=== PATIENT | female | born 1980 | race Caucasian/White ===

== ENCOUNTER → 2017-01-07 | Outpatient (CLI) | payer OTHER ==
[~2017-01-07] MED LIST: BETAMETHASONE SOD PHOS/ACETATE SUSP 30 MG/5 ML VIAL IM SCH; CLIN1CAP6 PO; IBUP-232 PO
== END ==
LOC: HPND 14:28
PROVIDERS: ATTEND Obstetrics & Gynecology
DX: Z34.83 Encounter for supervision of other normal pregnancy, third trimester (principal)
CPT/HCPCS: 96372; J0702

== ENCOUNTER → 2017-01-08 | Outpatient (CLI) | payer OTHER | LOC: HOBG 14:44 | PROVIDERS: ATTEND Obstetrics & Gynecology | DX: Z34.83 Encounter for supervision of other normal pregnancy, third trimester (principal) | CPT/HCPCS: 96372; J0702 ==

== ENCOUNTER 2017-01-26 15:34 | Inpatient (IN) | payer OTHER ==
[~2017-01-26 15:34] MED LIST changes: -BETAMETHASONE SOD PHOS/ACETATE SUSP 30 MG/5 ML VIAL IM SCH; -IBUP-232 PO
[2017-01-26 17:42] VITALS: BP 141/88; PULSE 102
[2017-01-26 17:45] VITALS: RESP 18
[2017-01-26] MEDS ORDERED: NS 500 ML BOLUS IV PRN (18:00)
[2017-01-26] MEDS ORDERED: NS 1000 ML IV PRN (18:00)
[2017-01-26] MEDS ORDERED: LIDOCAINE HCL 1% 50 ML VIAL I-DERMAL PRN (18:00)
[2017-01-26] MEDS ORDERED: MINERAL OIL 10 ML VIAL TOP PRN (18:00)
[2017-01-26] MEDS ORDERED: LACTATED RINGER'S 1000 ML BOLUS IV PRN (18:00)
[2017-01-26] MEDS ORDERED: LACTATED RINGER'S 1000 ML IV SCH (18:00)
[2017-01-26] MEDS ORDERED: LIDOCAINE HCL 1% 50 ML VIAL INFIL PRN (18:00)
[2017-01-26] MEDS ORDERED: OXYTOCIN 30 UNITS 500ML PREMIX IV ONE (18:00)
[2017-01-26] MEDS ORDERED: CITRIC ACID-SODIUM CITRATE LIQ 30 ML UDC PO SCH (18:00)
[2017-01-26 18:03] LABS: AUTOMATED NEUTROPHIL # 7.6 TH/MM3 (1.8-7.7); BASOPHIL % 0.2 % (0.0-2.0); EOSINOPHIL # 0.1 TH/MM3 (0-0.4); EOSINOPHIL % 1.2 % (0.0-4.0); HEMATOCRIT 38.8 % (35.0-46.0); HEMO FLAGS DIFF FINAL; LYMPH % 16.1 % (9.0-44.0); LYMPHOCYTE # 1.6 TH/MM3 (1.0-4.8); MEAN CELL VOLUME 89.6 FL (80.0-100.0); MEAN CORPUSCULAR HEMOGLOBIN 30.5 PG (27.0-34.0); MONO % 5.9 % (0.0-8.0); NEUT % 76.6 % (16.0-70.0); PLATELET COUNT 304 TH/MM3 (150-450); RED BLOOD COUNT 4.33 MIL/MM3 (4.00-5.30); RED CELL DISTRIBUTION WIDTH 13.3 % (11.6-17.2); WHITE BLOOD COUNT 9.9 TH/MM3 (4.0-11.0)
[2017-01-26 18:08] LABS: BACTERIA, URINE RARE /hpf; BLOOD, URINE NEG (NEG); COMMENT (UR) CULT NOT INDICATED; CULTURE IF INDICATED CULT NOT INDICATED; GLUCOSE,URINE NEG (NEG); KETONE, URINE NEG (NEG); MUCUS URINE FEW /lpf (OCC); NITRITE,URINE NEG (NEG); SQUAMOUS EPITHELIAL CELL URINE 8 /hpf (0-5); URINE COLOR YELLOW (YELLW/STRAW)
[2017-01-26 18:15] LABS: ANION GAP 13 MEQ/L (5-15); AST (GOT) 13 U/L (15-37); BICARBONATE 22.9 MEQ/L (21.0-32.0); BLOOD UREA NITROGEN 10 MG/DL (7-18); CHLORIDE 104 MEQ/L (98-107); GLOMERULAR FILTRATION RATE 100 ML/MIN (>89); POTASSIUM 3.8 MEQ/L (3.5-5.1); SODIUM (NA) 140 MEQ/L (136-145); URIC ACID 4.9 MG/DL (2.6-6.0)
[2017-01-26 18:18] LABS: ALKALINE PHOSPHATASE 136 U/L (45-117); ALT (GPT) 19 U/L (10-53); TOTAL BILIRUBIN ADULT 0.7 MG/DL (0.2-1.0)
[2017-01-26 19:50] VITALS: BP 133/85; PULSE 108
[2017-01-26 19:57] VITALS: RESP 18; TEMP 98.3
[2017-01-26 22:00] VITALS: TEMP 98.1
[2017-01-27] VITALS (18 sets, daily range): BP systolic 124–161; BP diastolic 81–101; PULSE 75–115; RESP 17–18; TEMP 98.1–98.6
[2017-01-27] MEDS ORDERED: OXYTOCIN 30 UNITS-500ML PREMIX 500 ML ONE (02:38)
[2017-01-27] MEDS ORDERED: LIDOCAINE 2% JELLY 30 ML TUBE ONE (04:00)
--- NOTE | 2017-01-27 04:23 | PD.OB.DELI ---
Anesthesia: None Episiotomy: None Vaginal Delivery: Normal Presentation: Occiput anterior Nuchal Cord: x1 Delayed cord clamping (45 sec): Yes Infant: Female One Minute : 7 Five Minute : 9 Weight: 6 10 Care: Suctioned Placenta: Spontaneous delivery (irreducible short cord. ) Yani Carbajal MD Jan 27, 2017 04:23
--- NOTE | 2017-01-27 04:28 | HHI.HP ---
HPI Chief Complaint 4 cm with elevated blood pressures Date Seen: Jan 26, 2017 Time Seen: 15:00 Travel History International Travel<30 Days: No Contact w/Intl Traveler<30Days: No Known Affected Area: No History of Present Illness HPI 37 yo mwf at 37 3/7 on bedrest last few weeks for ealry dilation and mildly elevated blood pressures--presented with BP 140s/90/ and absent of other pre eclamptic criteria (HIP) No leaking, bleeding. No regular UCs GFM. No [place] REHMAN Blurred vision or RUQT sent to [facility] Para: 0 History Past Medical History Medical History: Denies Significant Hx Obstetric History Obstetric History G1 Past Surgical History Narrative Surgical no prior surgery Family History Family History: Negative Social History Alcohol Use: No Tobacco Use: No Substance Abuse: No Allergies-Medications (Allergen,Severity, Reaction): Coded Allergies: Sulfa (Verified Allergy, Severe, rash, 06/25/16) Home Meds Active Scripts Clindamycin Hcl (Clindamycin Hcl)300 Mg [id number] Mg PO BID 7 Days Prov:Emma Blount MD 06/25/16 Physical Exam Vital Signs Date Time Temp Pulse Resp B/P Pulse Ox O2 Delivery O2 Flow Rate FiO2 01/27/17 03:46 115 152/101 01/27/17 02:27 90 136/99 01/27/17 00:00 98.6 01/27/17 00:00 75 18 130/84 01/26/17 22:00 98.1 01/26/17 19:57 98.3 18 01/26/17 19:50 108 133/85 01/26/17 17:45 18 01/26/17 17:42 102 141/88 Narrative GENERAL: Well-nourished, well-developed patient. SKIN: Warm and dry. HEAD: Normocephalic and atraumatic. EYES: No scleral icterus. No injection or drainage. ENT: No nasal drainage noted. Mucous membranes pink. Airway patent. NECK: Supple, trachea midline. No JVD. CARDIOVASCULAR: Regular rate and rhythm without murmurs, gallops, or rubs. RESPIRATORY: Breath sounds equal bilaterally. No accessory muscle use. BREASTS: Bilateral exam showed no masses , no retractions, no nipple discharge. ABDOMEN/GI: Abdomen soft, non-tender, bowel sounds present, no rebound, no guarding Gravid to [-] weeks size Fundal Height: [-] GENITOURINARY: cervic 5+ at evaluation in hospital arom Clear pelvis clincially aduqate EFW 7 strip reactive EXTREMITIES: No cyanosis or edema. BACK: Nontender without obvious deformity. No CVA tenderness. NEUROLOGICAL: Awake and alert. Motor and sensory grossly within normal limits. Five out of 5 muscle strength in all muscle groups. Normal speech. Data Data Orders Admit To Inpatient (01/26/17 ) Vital Signs (Adult) .Per protocol (01/26/17 17:41) ^ Heart (01/26/17 17:41) ^ Amnioinfusion (01/26/17 17:41) Urinary Catheter Management .ONCE (01/26/17 17:41) Complete Blood Count With Diff (01/26/17 17:41) Hold Clot (01/26/17 17:41) Abo/Rh Blood Type (01/26/17 17:41) Urinalysis - C+S If Indicated (01/26/17 17:41) Resp Oxygen Non Rebreathe Mask (01/26/17 ) ^ Epidural / Intrathecal Infus (01/26/17 17:41) Specimen To Be Collected PRN (01/26/17 17:41) Comprehensive Metabolic Panel (01/26/17 17:41) Uric Acid (01/26/17 17:41) Diet Regular Basic (01/26/17 Dinner) Lactated Ringer's 1000 Ml Inj (Lr 1000 M (01/26/17 18:00) Lactated Ringer's 1000 Ml Inj (Lr 1000 M (01/26/17 18:00) Sodium Chlorid 0.9% 500 Ml Inj (Ns 500 M (01/26/17 18:00) Sodium Chlor 0.9% 1000 Ml Inj (Ns 1000 M (01/26/17 18:00) Lidocaine 1% Inj (50 Ml) (Xylocaine 1% I (01/26/17 18:00) Citric Acid-Sodium Citrate Liq (Bicitra (01/26/17 18:00) Fentanyl Inj (Fentanyl Inj) (01/26/17 18:00) Oxytocin 30 Units-500ml Premix (Pitocin (01/26/17 18:00) Lidocaine 1% Inj (50 Ml) (Xylocaine 1% I (01/26/17 18:00) Light Mineral Oil (Muri-Lube Oil) (01/26/17 18:00) Fentanyl Inj (Fentanyl Inj) (01/26/17 18:00) Oxytocin 30 Units-500ml Premix (Pitocin (01/27/17 02:38) Lidocaine 2% Jelly (Xylocaine 2% Jelly) (01/27/17 04:00) Vital Signs (Adult) .QSHIFT (01/27/17 04:17) Activity Oob Ad Leann (01/27/17 04:17) Ice / Cold Pack PRN (01/27/17 04:17) ^ Discontinue Iv (01/27/17 04:17) ^ Sitz Bath PRN (01/27/17 04:17) ^ Massage (01/27/17:17) ^ Rhogam (01/27/17 04:17) Urinary Catheter Management .PRN (01/27/17 04:17) Diet Regular Basic (01/27/17 Breakfast) Sodium Chloride 0.9% Flush (Ns Flush) (01/27/17 09:00) Sodium Chloride 0.9% Flush (Ns Flush) (01/27/17 04:30) Acetaminophen (Tylenol) (01/27/17 04:30) Ibuprofen (Motrin) (01/27/17 04:30) Oxycodone-Acetamin 5-325 Mg (Percocet (01/27/17 04:30) Benzocaine 20% Top Spr (Americaine 20% T (01/27/17 04:30) Witch Melissa-Glycerin Pad (Tucks Pads) (01/27/17 04:30) Docusate Sodium-Senna (Mireya-Colace) (01/27/17 04:30) Zolpidem (Ambien) (01/27/17 04:30) Iyyaqub-Gltrn-Yihrssa Inj (M-M-R Ii Inj) (01/27/17 16:00) Syyl-Yes-Asmjqg (Booster) Inj (Boostrix (01/27/17 16:00) Al-Mag Hy-Si 40-40-4 Mg/Ml Liq (Mag-Al P (01/27/17 04:30) Ondansetron Odt (Zofran Odt) (01/27/17 04:30) Labs Laboratory Tests Test 01/26/17 01/26/17 15:45 16:15 Urine Color YELLOW Urine Turbidity HAZY Urine pH 6.0 Urine Specific [place] 1.017 Urine Protein TRACE Urine Glucose (UA) NEG Urine Ketones NEG Urine Occult Blood NEG Urine Nitrite NEG Urine Bilirubin NEG Urine Urobilinogen LESS THAN 2.0 Urine Leukocyte Esterase MOD Urine RBC 1 Urine WBC 7 Urine Squamous Epithelial 8 Cells Urine Bacteria RARE Urine Mucus FEW Microscopic Urinalysis Comment CULT NOT INDICATED White Blood Count 9.9 Red Blood Count 4.33 Hemoglobin 13.2 Hematocrit 38.8 Mean Corpuscular Volume 89.6 Mean Corpuscular Hemoglobin 30.5 Mean Corpuscular Hemoglobin 34.0 Concent Red Cell Distribution Width 13.3 Platelet Count 304 Mean Platelet Volume 8.6 Neutrophils (%) (Auto) 76.6 Lymphocytes (%) (Auto) 16.1 Monocytes (%) (Auto) 5.9 Eosinophils (%) (Auto) 1.2 Basophils (%) (Auto) 0.2 Neutrophils # (Auto) 7.6 Lymphocytes # (Auto) 1.6 Monocytes # (Auto) 0.6 Eosinophils # (Auto) 0.1 Basophils # (Auto) 0.0 CBC Comment DIFF FINAL Differential Comment Sodium Level 140 Potassium Level 3.8 Chloride Level 104 Carbon Dioxide Level 22.9 Anion Gap 13 Blood Urea Nitrogen 10 Creatinine 0.67 Estimat Glomerular Filtration 100 Rate Random Glucose 73 Uric Acid 4.9 Calcium Level 9.9 Total Bilirubin 0.7 Aspartate Amino Transf 13 (AST/SGOT) Alanine Aminotransferase 19 (ALT/SGPT) Alkaline Phosphatase 136 Total Protein 7.1 Albumin 2.7 Blood Type A POSITIVE Band and Hold Assessment/Plan Assessment and Plan anticipate Mg seizure prophylaxis if indicated Epidrual as needed Ynai Carbajal MD Jan 27, 2017 04:27
[2017-01-27] MEDS ORDERED: IBUPROFEN 600 MG TAB PO PRN (04:30)
[2017-01-27] MEDS ORDERED: ZOLPIDEM TARTRATE 5 MG TAB PO PRN (04:30)
[2017-01-27] MEDS ORDERED: ONDANSETRON ODT 4 MG TAB PO PRN (04:30)
[2017-01-27] MEDS ORDERED: ACETAMINOPHEN 325 MG TAB PO PRN (04:30)
[2017-01-27] MEDS ORDERED: BENZOCAINE 20% TOPICAL SPRAY 60 ML CAN TOPICAL PRN (04:30)
[2017-01-27] MEDS ORDERED: SODIUM CHLORIDE 0.9% FLUSH 5 ML FLUSH IV PRN (04:30)
[2017-01-27] MEDS ORDERED: oxyCODONE/ACETAMINOPHEN 5 MG/325 MG TAB PO PRN (04:30)
[2017-01-27] MEDS ORDERED: DOCUSATE SODIUM 50 MG/SENNA 8.6 MG TAB PO PRN (04:30)
[2017-01-27] MEDS ORDERED: ALUMINUM/MAGNESIUM/SIMETH 30 ML CUP PO PRN (04:30)
[2017-01-27] MEDS ORDERED: WITCH HAZEL 50%/GLYCERIN 12.5% 40 PAD JAR TOPICAL PRN (04:30)
[2017-01-27] MEDS ORDERED: SODIUM CHLORIDE 0.9% FLUSH 5 ML FLUSH IV SCH (09:00)
[2017-01-27] MEDS ORDERED: MEASLES, MUMPS, RUBELLA VACCINE 0.5 ML VIAL SQ ONE (16:00)
[2017-01-27] MEDS ORDERED: DIPHTH/TETANUS/ACEL PERTUSSIS (BOOSTER) 0.5 ML VIAL/PFS IM ONE (16:00)
[2017-01-28 07:35] VITALS: BP 118/74; PULSE 92; RESP 18; TEMP 97.8
--- NOTE | 2017-01-28 11:22 | HHI.OB ---
Subjective Post Day: 1 Remarks PPD#1, Stable ,no c/o of h/a,BV.,N/v/d. attempting to BF Objective Vitals/I&O Vital Signs Date Time Temp Pulse Resp B/P Pulse Ox O2 Delivery O2 Flow Rate FiO2 01/28/17 07:35 97.8 92 18 118/74 01/27/17 19:50 98.2 01/27/17 19:50 108 17 147/82 01/27/17 15:59 98.3 Objective Remarks GENERAL: Well-nourished, well-developed patient. CARDIOVASCULAR: Regular rate and rhythm without murmurs, gallops, or rubs. RESPIRATORY: Breath sounds equal bilaterally. No accessory muscle use. ABDOMEN/GI: Abdomen soft, non-tender. Fundus: Firm, non-tender at umbilicus. GENITOURINARY: Light to moderate bleeding. EXTREMITIES: No cyanosis or edema, non-tender, without signs of DVT. Medications and IVs Current Medications Medications (Trade) Dose Ordered Sig/Rakan Route Start Time Stop Time Status Last Admin Lactated Ringer's 1,000 ml @ 125 mls/hr Q8H IV 01/26/17 18:00 01/26/17 23:00 Lactated Ringer's 1,000 ml @ 3,000 mls/hr BOLUS PRN IV 01/26/17 18:00 Sodium Chloride 500 ml @ 1,000 mls/hr BOLUS PRN IV 01/26/17 18:00 (NS 1000 ml Inj) 1,000 ml @ 100 mls/hr Q10H PRN IV 01/26/17 18:00 (fentaNYL INJ) 50 mcg Q1H PRN IV PUSH 01/26/17 18:00 (fentaNYL INJ) 100 mcg Q1H PRN IV PUSH 01/26/17 18:00 01/27/17 03:42 (Muri-Lube Oil) 10 ml UNSCH PRN TOP 01/26/17 18:00 (NS Flush) 2 ml BID IV 01/27/17 09:00 (NS Flush) 2 ml UNSCH PRN IV 01/27/17 04:30 (Tylenol) 650 mg Q4H PRN PO 01/27/17 04:30 (Motrin) 600 mg Q6H PRN PO 01/27/17 04:30 01/27/17 05:34 (Percocet 5-325 Mg) 1 tab Q4H PRN PO 01/27/17 04:30 (Americaine 20% Top Spr) 1 spray Q4H PRN TOPICAL 01/27/17 04:30 (Tucks Pads) 1 applic QID PRN TOPICAL 01/27/17 04:30 (Mireya-Colace) 2 tab Q12H PRN PO 01/27/17 04:30 (Ambien) 5 mg HS PRN PO 01/27/17 04:30 (Mag-Al Plus Susp Liq) 15 ml Q8H PRN PO 01/27/17 04:30 (Zofran Odt) 4 mg Q6H PRN PO 01/27/17 04:30 Assessment/Plan Assessment and Plan PPD#1, 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
[2017-01-28 19:45] VITALS: BP 142/84; PULSE 79; RESP 16; TEMP 98; O2SAT 98
--- NOTE | 2017-01-29 08:32 | HHI.OB ---
Subjective Post Day: 2 Remarks doing well, no REHMAN/BV/CP Objective Vitals/I&O Vital Signs Date Time Temp Pulse Resp B/P Pulse Ox O2 Delivery O2 Flow Rate FiO2 01/28/17 19:45 79 16 142/84 01/28/17 19:45 98 01/28/17 19:45 98.0 Objective Remarks GENERAL: Well-nourished, well-developed patient. CARDIOVASCULAR: Regular rate and rhythm without murmurs, gallops, or rubs. RESPIRATORY: Breath sounds equal bilaterally. No accessory muscle use. ABDOMEN/GI: Abdomen soft, non-tender. Fundus: Firm, non-tender at umbilicus. GENITOURINARY: Light to moderate bleeding. EXTREMITIES: No cyanosis or edema, non-tender, without signs of DVT. Medications and IVs Current Medications Medications (Trade) Dose Ordered Sig/Rakan Route Start Time Stop Time Status Last Admin Lactated Ringer's 1,000 ml @ 125 mls/hr Q8H IV 01/26/17 18:00 01/26/17 23:00 Lactated Ringer's 1,000 ml @ 3,000 mls/hr BOLUS PRN IV 01/26/17 18:00 Sodium Chloride 500 ml @ 1,000 mls/hr BOLUS PRN IV 01/26/17 18:00 (NS 1000 ml Inj) 1,000 ml @ 100 mls/hr Q10H PRN IV 01/26/17 18:00 (fentaNYL INJ) 50 mcg Q1H PRN IV PUSH 01/26/17 18:00 (fentaNYL INJ) 100 mcg Q1H PRN IV PUSH 01/26/17 18:00 01/27/17 03:42 (Muri-Lube Oil) 10 ml UNSCH PRN TOP 01/26/17 18:00 (NS Flush) 2 ml BID IV 01/27/17 09:00 (NS Flush) 2 ml UNSCH PRN IV 01/27/17 04:30 (Tylenol) 650 mg Q4H PRN PO 01/27/17 04:30 (Motrin) 600 mg Q6H PRN PO 01/27/17 04:30 01/27/17 05:34 (Percocet 5-325 Mg) 1 tab Q4H PRN PO 01/27/17 04:30 (Americaine 20% Top Spr) 1 spray Q4H PRN TOPICAL 01/27/17 04:30 (Tucks Pads) 1 applic QID PRN TOPICAL 01/27/17 04:30 (Mireya-Colace) 2 tab Q12H PRN PO 01/27/17 04:30 (Ambien) 5 mg HS PRN PO 01/27/17 04:30 (Mag-Al Plus Susp Liq) 15 ml Q8H PRN PO 01/27/17 04:30 (Zofran Odt) 4 mg Q6H PRN PO 01/27/17 04:30 Assessment/Plan Assessment and Plan PPD#2, 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
[2017-01-29] MEDS ORDERED: IBUP-232 PO (08:33)
--- NOTE | 2017-01-29 08:33 | HHI.DCPOC ---
Discharge Care Plan Your Health Problems Are: Pelvic pain Report Symptoms to Your Doctor -Temperate above 100.5 degrees -Redness, of incision or excessive or foul smelling drainage -Unusual pain or calf pain -Increased vaginal bleeding -Painful or difficulty urinating -Feelings of extreme sadness or anxiety after 2 weeks Goals to Promote Your Health * To prevent worsening of your condition and complications * To maintain your health at the optimal level Directions to Meet Your Goals Take your medications as prescribed Follow your dietary instruction Follow activity as directed Ensure plenty of rest for recovery Drink fluids for hydration Keep your appointments as scheduled Take your immunizations and boosters as scheduled If your symptoms worsen call your PCP, if no PCP go to Urgent Care Center or Emergency Room Smoking is Dangerous to Your Health. Avoid second hand smoke Call the 24-hour crisis hotline for domestic abuse at Cris Bowie MD Jan 29, 2017 08:33
[2017-01-29 08:45] VITALS: BP 132/89; PULSE 80; RESP 16; TEMP 97.6
== END 2017-01-29 17:19 | disposition home or self-care (01) | DRG 775 ==
LOC: H2EB 15:34 → H1EA 01-27 06:17
PROVIDERS: ADMIT Obstetrics & Gynecology; ATTEND Obstetrics & Gynecology
PROC: 10E0XZZ Delivery of Products of Conception, External Approach (ICD-10-PCS; principal; 2017-01-29)
PROC: 10907ZC Drainage of Amniotic Fluid, Therapeutic from Products of Conception, Via Natural or Artificial Opening (ICD-10-PCS; 2017-01-29)
PROC: 3E033VJ Introduction of Other Hormone into Peripheral Vein, Percutaneous Approach (ICD-10-PCS; 2017-01-29)
DX: O69.3XX1 Labor and delivery complicated by short cord, fetus 1 (principal); R03.0 Elevated blood-pressure reading, without diagnosis of hypertension; O75.89 Other specified complications of labor and delivery; Z3A.37 37 weeks gestation of pregnancy; Z37.0 Single live birth
CPT/HCPCS: 80053; 81001; 84550; 85025; 86900; 86901; J2590; J3010; J7120